=== PATIENT | female | born 1980 | race American Indian/Alaskan Native ===

== ENCOUNTER 2020-07-05 20:37 | Emergency (ER) | payer SELFPAY ==
--- NOTE | 2020-07-06 07:07 | Emergency Department Report ---
ED Extremity Problem HPI - General Stated complaint: RT ARM,LF HIP PAIN Time Seen by Provider: 07/06/20 07:03 Source: patient - History of Present Illness Initial comments: 39-year-old female presents to ED with right arm and left hip pain. Patient states she fell while trying to change a light bulb last night around 8 PM. Denies LOC. She reports pain to the left hip, however states she has been ambulatory. Patient states pain in right shoulder is much worse, states she is unable to move her arm secondary to the pain. She denies any numbness or tingling. MD Complaint: extremity pain -: Last night Location: left, right, upper extremity, lower extremity -: Yes arthralgia Quality: aching Consistency: constant Improves with: immobilization Worsens with: palpation, other (Movement) Associated Symptoms: denies other symptoms - Related Data Previous Rx's Medication Instructions Recorded Last Taken Type Naproxen [Naprosyn] 500 mg PO BID #20 tablet 07/06/20 Unknown Rx traMADoL [Ultram] 50 mg PO Q6HR PRN #7 tablet 07/06/20 Unknown Rx Allergies Allergy/AdvReac Type Severity Reaction Status Date / Time No Known Allergies Allergy Verified 07/06/20 07:15 ED Review of Systems ROS: Stated complaint: RT ARM,LF HIP PAIN Other details as noted in HPI Comment: All other systems reviewed and negative Musculoskeletal: as per HPI Neurological: denies: numbness, paresthesias ED Past Medical Hx - Medications Home Medications: Home Medications Medication Instructions Recorded Confirmed Last Taken Type Naproxen [Naprosyn] 500 mg PO BID #20 tablet 07/06/20 Unknown Rx traMADoL [Ultram] 50 mg PO Q6HR PRN #7 tablet 07/06/20 Unknown Rx ED Physical Exam - General General appearance: alert, in no apparent distress - Head Head exam: Present: atraumatic, normocephalic - Eye Eye exam: Present: normal appearance, EOMI - ENT ENT exam: Present: mucous membranes moist - Neck Neck exam: Present: normal inspection - Respiratory Respiratory exam: Present: normal lung sounds bilaterally. Absent: respiratory distress - Cardiovascular Cardiovascular Exam: Present: regular rate, normal rhythm - GI/Abdominal GI/Abdominal exam: Present: soft. Absent: distended, tenderness - Extremities Exam Extremities exam: Present: normal inspection, other (Left hip with normal range of motion, nontender; right shoulder tender to palpation, no obvious deformity, able to flex and extend at the elbow) - Neurological Exam Neurological exam: Present: alert, oriented X3 - Psychiatric Psychiatric exam: Present: normal affect, normal mood - Skin Skin exam: Present: warm, dry, intact, normal color ED Course Vital Signs 07/06/20 07/06/20 07/06/20 07:19 07:22 07:30 Temperature 98.2 F Pulse Rate 82 81 Respiratory 22 22 Rate Blood Pressure 110/74 Blood Pressure 113/75 [Left] O2 Sat by Pulse 100 100 99 Oximetry 07/06/20 07/06/20 07/06/20 07:32 08:00 08:30 Temperature Pulse Rate 77 77 Respiratory 22 17 21 Rate Blood Pressure 112/82 108/79 Blood Pressure [Left] O2 Sat by Pulse 100 99 99 Oximetry 07/06/20 07/06/20 09:00 09:31 Temperature Pulse Rate 71 67 Respiratory 22 12 Rate Blood Pressure 113/80 119/89 Blood Pressure [Left] O2 Sat by Pulse Oximetry ED Medical Decision Making - Radiology Data Radiology results: report reviewed, image reviewed - Medical Decision Making Patient reports history of shoulder dislocations in the past. Today's x-ray shows subluxation, no dislocation. Following pain medication, patient's range of motion appears to be intact. There is no deformity noted to the shoulder which would be consistent with shoulder dislocation. Due to previous disl ocations in the past, this likely accounts for the subluxation on shoulder films. Patient will not require reduction at this time. Advise follow-up with orthopedics. - Differential Diagnosis fracture, sprain Critical care attestation.: If time is entered above; I have spent that time in minutes in the direct care of this critically ill patient, excluding procedure time. ED Disposition Clinical Impression: Shoulder subluxation, right, Contusion of left hip Disposition: TO HOME OR SELFCARE Is pt being admited?: No Condition: Stable Instructions: Rotator Cuff Injury (ED), Shoulder Sprain (ED) Prescriptions: Naproxen [Naprosyn] 500 mg PO BID #20 tablet traMADoL [Ultram] 50 mg PO Q6HR PRN #7 tablet PRN Reason: Pain Referrals: EULALIA BLACKMAN MD [Staff Physician] - 3-5 Days Forms: Work/School Release Form(ED) Time of Disposition: 09:30
--- NOTE | 2020-07-06 08:20 | XRay Report ---
RIGHT ELBOW 3 VIEWS 0730 INDICATION: fall, injury COMPARISON: None available. FINDINGS: No definite joint effusion is seen. Slight arthritic changes are noted. No fractures or dis locations are identified. On oblique view projecting in the joint space just lateral to the proximal ulna tiny bony densities are seen which appear corticated and likely are old though could represent s mall loose bodies in the joint. These are not readily identified on other views. RIGHT SHOULDER 3 VIEWS 0723 INDICATION: fall, injury COMPARISON: None available. FINDINGS: External rotation view is not well rotated. No obvious fractures are seen. The humeral head appears subluxed inferiorly though not fully dislocated. This is of unknown chronicity. Moderate gle nohumeral degenerative changes are seen. Signer Name: Salomón Avila MD Signed: 07/06/2020 8:15 AM Workstation Name: [id number]
[2020-07-06] MEDS ORDERED: ONDANSETRON 4 MG/2 ML INJ IV ONE (08:58)
[2020-07-06] MEDS ORDERED: MORPHINE 2 MG/1 ML INJ IV ONE (08:58)
[2020-07-06 10:10] VITALS: BP 119/89
== END 2020-07-06 10:09 | disposition home or self-care (01) ==
LOC: ED 20:37
DX: S43.081A Other subluxation of right shoulder joint, initial encounter (principal); S70.02XA Contusion of left hip, initial encounter; W17.89XA Other fall from one level to another, initial encounter; Y93.89 Activity, other specified; Y92.89 Other specified places as the place of occurrence of the external cause; Y99.8 Other external cause status
CPT/HCPCS: 73030; 73080; 96374; 96375; 99284; J2270; J2405